=== PATIENT | female | born 1965 | race Caucasian/White ===

== ENCOUNTER 2021-07-19 17:35 | Observation (INO) ==
[2021-07-19] MEDS ORDERED: Isovue-370 500 ML BOTTLE IVP ONE (23:01)
[2021-07-19] MEDS ORDERED: 0.9 % Sodium Chloride 1,000 ML IV ONE (23:01)
[2021-07-19 23:23] LABS: Basophils # 0.1 K/mcL (0.0-0.2); Basophils % 0.7 %; Eosinophils # 0.2 K/mcL (0.0-0.6); Eosinophils % 1.3 %; Hematocrit 49.1 % (35.3-44.9); Hemoglobin 15.6 g/dL (11.5-15.4); Immature Granulocytes % 0.5 % (0-4); Lymphocytes # 3.1 K/mcL (0.6-4.6); Lymphocytes % 21.3 %; Mean Corpuscular HGB Conc 31.8 g/dL (31.6-35.5); Mean Corpuscular Volume 91.3 fL (83.0-100.0); Mean Platelet Volume 9.9 fL (9.4-12.4); Monocytes # 0.9 K/mcL (0.0-1.3); Neutrophils # 10.3 K/mcL (1.6-8.9); Platelet Count 530 K/mcL (140-400); Red Blood Count 5.38 M/mcL (3.82-4.97); Segmented Neutrophils % 70.2 %; White Blood Count 14.7 K/mcL (4.3-11.1)
[2021-07-19 23:35] LABS: Alanine Aminotransferase 14 Units/L (7-52); Albumin 4.4 g/dL (3.5-5.7); Albumin/Globulin Ratio 1.2 (1.1-2.2); Alkaline Phosphatase 51 Units/L (34-104); Aspartate Amino Transferase 16 Units/L (13-39); BUN/Creatinine Ratio 25 (6-26); Bilirubin,Total 0.2 mg/dL (0.3-1.0); Blood Urea Nitrogen 17 mg/dL (6-20); Calcium 10.1 mg/dL (8.6-10.3); Carbon Dioxide 28 mEq/L (23-29); Chloride 102 mEq/L (98-107); Globulin 3.8 g/dL (2.4-3.5); Glucose 72 mg/dL (70-105); Osmolality,Calculated 288 (280-300); Potassium 4.3 mEq/L (3.5-5.1); Sodium 139 mEq/L (136-145); Total Protein 8.2 g/dL (6.4-8.9); eGFR For African Americans > 60 (> 60); eGFR For Non-African Americans > 60 (> 60)
[2021-07-20] MEDS ORDERED: diazePAM 5 MG TABLET PO ONE (01:29)
[2021-07-20] MEDS ORDERED: Naloxone 0.4 MG/ML INJ IVP PRN (05:48)
[2021-07-20] MEDS ORDERED: Ondansetron 4 MG/2 ML VIAL IVP PRN (05:48)
[2021-07-20] MEDS ORDERED: Acetaminophen 325 MG TABLET PO PRN (05:48)
[2021-07-20] MEDS ORDERED: Melatonin 3 MG TABLET PO PRN (05:48)
[2021-07-20] MEDS ORDERED: *HR* Dextrose 50 % in Water (Syg) 50 ML SYRINGE IVP PRN (07:31)
[2021-07-20] MEDS ORDERED: Dextrose Gel 15 GM/37.5 ML TUBE PO PRN ×2 (07:31)
[2021-07-20] MEDS ORDERED: D5% in Water 1,000 ML IVC PRN (07:31)
[2021-07-20] MEDS ORDERED: Nicotine 21 MG PATCH.TD24 TD PRN (07:48)
[2021-07-20] MEDS ORDERED: Insulin LISPRO 300 UNITS/3 ML VIAL SUBQ SCH ×2 (11:30→21:00)
[2021-07-20 15:45] VITALS: BP 131/80; PULSE 90; TEMP 97.2; O2SAT 94
== END 2021-07-20 18:00 | disposition home or self-care (01) ==
LOC: 4WAOSI 17:35 → EMEROOARM 17:35 → SUATTDRO 07-20 04:25 → INTOOBSV 07-20 04:25 → OBSVTOIN 07-20 04:25 → 4WAOSI 07-20 05:30
PROVIDERS: ADMIT Internal Medicine; ATTEND Internal Medicine